=== PATIENT | female | born 1960 | race Caucasian/White ===

== ENCOUNTER → 2021-11-18 | Day surgery (SDC) | payer MEDICARE, MEDICAID ==
[~2021-11-18] MED LIST: Ketamine 200 MG/20 ML MDV ONE; Lactated Ringers 1,000 ML IV SCH; Phenylephrine 1% 10 MG/ML SDV ONE; Propofol 200 MG/20 ML SDV ONE; fentaNYL 100 MCG/2 ML SDV ONE
[2021-11-18 12:16] VITALS: BP 133/88; PULSE 77
== END ==
LOC: CC.SDS 09:58
PROVIDERS: ATTEND Family Medicine
DX: K62.89 Other specified diseases of anus and rectum (principal); E78.5 Hyperlipidemia, unspecified; M85.80 Other specified disorders of bone density and structure, unspecified site; E87.6 Hypokalemia; N89.8 Other specified noninflammatory disorders of vagina; F32.A Depression, unspecified; Z79.899 Other long term (current) drug therapy; Z79.82 Long term (current) use of aspirin; Z98.890 Other specified postprocedural states; Z90.49 Acquired absence of other specified parts of digestive tract
CPT/HCPCS: J2370; J2704; J3010; J7120

== ENCOUNTER 2023-05-23 21:23 | Emergency (ER) | payer MEDICARE, MEDICAID ==
[~2023-05-23 21:23] MED LIST changes: -Ketamine 200 MG/20 ML MDV ONE; -Lactated Ringers 1,000 ML IV SCH; +Magnesium Sulfate/Water 2 GM in Premix Bag 1 BAG IV ONE; -Phenylephrine 1% 10 MG/ML SDV ONE; -Propofol 200 MG/20 ML SDV ONE; -fentaNYL 100 MCG/2 ML SDV ONE
[2023-05-23] MEDS ORDERED: Etomidate 2 MG/ML 10 ML SDV IVPUSH ONE ×4 (21:24→23:31)
[2023-05-23] MEDS: EPINEPHrine 1:10,000 1 MG/10 ML Syringe IVPUSH PRN ×2 (21:35→21:40)
[2023-05-23] MEDS ORDERED: Calcium Chloride 10% 1 GM/10 ML Syringe IVPUSH ONE (21:37)
[2023-05-23] MEDS: Sodium Chloride 0.9% 1,000 ML IV SCH ×2 (21:39→22:11)
[2023-05-23] MEDS ORDERED: EPINEPHrine 1 MG in Dextrose 5% in Water 99 ML IV SCH ×4 (21:40→22:45)
[2023-05-23 21:42] LABS: BASOPHILS ABSOLUTE AUTO 0.02 10^3/uL (0.00-0.50); BASOPHILS PERCENT AUTO 0.1 % (0-1); EOSINOPHILS ABSOLUTE AUTO 0.01 10^3/uL (0.00-1.50); EOSINOPHILS PERCENT AUTO 0.1 % (0-6); HEMOGLOBIN 13.2 g/dL (12.0-16.0); IMMATURE GRAN ABSOLUTE AUTO 0.03 10^3/uL (0.00-0.49); IMMATURE GRAN PERCENT AUTO 0.2 % (0.0-4.9); LYMPHOCYTES ABSOLUTE AUTO 0.83 10^3/uL (0.60-5.00); MEAN CORPUSCULAR HEMOGLOBIN 28.7 pg (27.0-32.0); MEAN CORPUSCULAR HGB CONC 33.8 g/dL (32.0-36.0); MEAN CORPUSCULAR VOLUME 84.8 fL (83.0-97.0); MONOCYTES ABSOLUTE AUTO 0.47 10^3/uL (0.00-1.50); MONOCYTES PERCENT AUTO 3.4 % (0-10); NEUTROPHILS ABSOLUTE AUTO 12.49 x10^3/uL (1.80-8.00); NEUTROPHILS PERCENT AUTO 90.2 % (41-71); PLATELET COUNT,PLT 433 10^3/uL (150-400); WHITE BLOOD CELL COUNT,WBC 13.9 10^3/uL (4.0-11.0)
[2023-05-23] MEDS ORDERED: Midazolam 1 MG/ML 2 ML SDV IVPUSH ONE ×2 (21:48→22:35)
[2023-05-23] MEDS ORDERED: Atropine 0.4 MG/ML SDV IVPUSH ONE (21:56)
[2023-05-23 21:58] LABS: ALANINE AMINOTRANSFERASE,ALT 28 U/L (12-78); ALBUMIN 3.2 g/dL (3.4-5.0); ALKALINE PHOSPHATASE 144 U/L (46-116); ASPARTATE AMNIOTRANSFERASE,AST 39 U/L (15-37); BILIRUBIN TOTAL 0.8 mg/dL (0.0-1.0); BLOOD UREA NITROGEN,BUN 10 mg/dL (7-18); CARBON DIOXIDE,CO2 30 mmol/L (21-32); CHLORIDE,CL 91 mEq/L (98-106); CREATININE 0.6 mg/dL (0.6-1.0); GLUCOSE RANDOM 193 mg/dL (75-99); MAGNESIUM 1.5 mg/dL (1.8-2.4); POTASSIUM,K 3.3 mEq/L (3.5-5.0); PROTEIN TOTAL,TP 6.5 g/dL (6.4-8.2); SODIUM,NA 128 mEq/L (136-145)
[2023-05-23] MEDS ORDERED: Amiodarone 150 MG/3 ML SDV IVPUSH ONE (21:59)
[2023-05-23] MEDS ORDERED: Sodium Chloride 0.9% 1,000 ML ONE ×2 (22:00→22:38)
[2023-05-23 22:01] LABS: ESTIMATED GFR 101 mL/min (>=60)
[2023-05-23 22:02] LABS: ETHANOL BLOOD MEDICAL < 3 mg/dL (0-3)
[2023-05-23] MEDS ORDERED: Magnesium Sulfate (4.06 MEQ/ML) 1 GM/2 ML SDV IV ONE ×2 (22:04→22:17)
[2023-05-23] MEDS ORDERED: Piperacillin/Tazobactam 4.5 GM in Sodium Chloride 0.9% 100 ML IV ONE (22:09)
[2023-05-23] MEDS ORDERED: VANCOmycin 2 GM/400 ML 2 GM in Premix Bag 1 BAG IV ONE (22:09)
[2023-05-23 22:16] LABS: O2 DELIVERY DEVICE NASAL CANNULA
[2023-05-23 22:17] LABS: BASE EXCESS ARTERIAL 1.4 (-2.0-3.0); O2 SATURATION ARTERIAL 99 % (95-98); PCO2 ARTERIAL 50 mm/Hg0 (35-45); PH,ARTERIAL 7.35 (7.35-7.45); PO2 ARTERIAL 125 mm/Hg (80-100)
[2023-05-23] MEDS ORDERED: Vancomycin 1 GM SDV ONE (22:29)
[2023-05-23] MEDS ORDERED: Sodium Chloride 0.9% 0 ML ONE (22:31)
[2023-05-23] MEDS ORDERED: fentaNYL 100 MCG/2 ML SDV IV ONE ×3 (22:35→23:31)
[2023-05-23] MEDS ORDERED: Magnesium Sulfate/Water 50 ML ONE (22:41)
[2023-05-23] MEDS ORDERED: Sodium Chloride 0.9% 500 ML ONE ×2 (22:52→23:01)
[2023-05-23] MEDS ORDERED: Potassium Chloride Riders 20 MEQ in Premix Bag 1 BAG IV ONE ×2 (22:52→23:15)
[2023-05-23] MEDS ORDERED: Etomidate 2 MG/ML 10 ML SDV ONE ×2 (23:00→23:28)
[2023-05-23] MEDS ORDERED: EPINEPHrine 1 MG/ML SDV ONE (23:08)
[2023-05-23] MEDS ORDERED: Sodium Chloride 0.9% 100 ML ONE (23:08)
[2023-05-23] MEDS ORDERED: Norepinephrine 4 MG/4 ML SDV ONE (23:15)
[2023-05-23] MEDS ORDERED: fentaNYL 100 MCG/2 ML SDV ONE (23:29)
[2023-05-24] MEDS ORDERED: Succinylcholine 200 MG/10 ML MDV IVPUSH STA (03:36)
== END 2023-05-24 00:35 ==
LOC: CC.ED 21:23
DX: I46.8 Cardiac arrest due to other underlying condition (principal); R94.31 Abnormal electrocardiogram [ECG] [EKG]; Z79.82 Long term (current) use of aspirin; Z79.899 Other long term (current) drug therapy
CPT/HCPCS: 31500; 36415; 36600; 71045; 80053; 80307; 82803; 83605; 83735; 84484; 85025; 87040; 93005; 93010; 96365; 96367; 96368; 96375; 96376; 99285; 99285-25; J0171; J0282; J0461; J2250; J2543; J3010; J3370; J3475; J3480; J3490; J7030